=== PATIENT | female | born 1945 | race Caucasian/White ===

== ENCOUNTER 2019-06-03 17:18 | Outpatient (CLI) | payer MEDICARE | END 2019-06-03 17:19 | LOC: LABRHC 17:18 | PROVIDERS: ATTEND Nurse Practitioner Family | DX: N39.0 Urinary tract infection, site not specified (principal); R31.9 Hematuria, unspecified | CPT/HCPCS: 87086; 87186 ==

== ENCOUNTER 2019-09-09 14:01 | Outpatient (CLI) | payer MEDICARE ==
[2019-09-09 14:50] LABS: A1C 5.3 % (<5.7)
[2019-09-09 14:52] LABS: eGFR (Non-African) > 60
[2019-09-09 14:53] LABS: HDL 49 mg/dL (>40)
== END 2019-09-09 14:06 ==
LOC: LABRHC 14:01
PROVIDERS: ATTEND Family Medicine
DX: I10 Essential (primary) hypertension (principal); R53.83 Other fatigue; E11.9 Type 2 diabetes mellitus without complications; Z79.4 Long term (current) use of insulin
CPT/HCPCS: 80053; 80061; 83036; 84439; 84443; 84481